=== PATIENT | male | born 1985 | race Caucasian/White ===

== ENCOUNTER 2019-06-10 23:25 | Emergency (ER) | payer MEDICAID ==
[~2019-06-10] VITALS: Ht 170.2 cm; Wt 94.0 kg
[2019-06-11 00:27] VITALS: BP 124/68
== END 2019-06-11 00:35 | disposition home or self-care (01) ==
LOC: ER 23:48
DX: T78.40XA Allergy, unspecified, initial encounter (principal); Z88.8 Allergy status to other drugs, medicaments and biological substances
CPT/HCPCS: 99282